=== PATIENT | female | born 1960 | race Caucasian/White ===

== ENCOUNTER 2017-08-05 06:03 | Day surgery (SDC) | payer BC ==
[2017-08-05] MEDS ORDERED: FENTAnyl 50 MCG/ML VIAL (07:55)
[2017-08-05] MEDS ORDERED: MIDAZOLAM 1 MG/ML 2 ML INJ (07:55)
== END 2017-08-05 12:16 | disposition home or self-care (01) ==
LOC: GIL 06:03
DX: K44.9 Diaphragmatic hernia without obstruction or gangrene (principal); K21.9 Gastro-esophageal reflux disease without esophagitis; K29.70 Gastritis, unspecified, without bleeding; I10 Essential (primary) hypertension
CPT/HCPCS: 43239; 87081